=== PATIENT | male | born 1950 | race Caucasian/White ===

== ENCOUNTER 2018-09-22 03:03 | Emergency (ER) | payer OTHER ==
[2018-09-22 03:38] VITALS: BMI 28.0
[2018-09-22] MEDS ORDERED: KETOROLAC TROMETHAMINE 30 MG/1 ML VIAL IVPUSH ONE (04:15)
[2018-09-22] MEDS ORDERED: SODIUM CHLORIDE 0.9% 500 ML INFUS.BAG IV ONE (04:15)
--- NOTE | 2018-09-22 04:16 | PDOC ---
History of Present Illness - General Chief Complaint: Pain, Acute Stated Complaint: BACK PAIN/VOMITING Time Seen by Provider: 09/22/18 03:56 - History of Present Illness Initial Comments: 09/22/18 03:07 68yo M hx DM presents c/o L flank pain x2hrs. Pt was sleeping and was awoken from sleep with a sharp pain in his b/l flanks that moved to his L flank and around forward to his L side/LLQ. Gradual worsening, constant, nothing makes worse, hasn't tried any meds or anything to make better. Endorses nausea. Denies vomiting, dizziness, F/C, D/C, blood in stool or urine, hematuria, dysuria, hx of similar sx, hx of kidney stones or UTIs, heavy lifting or exertion, trauma, chest pain, SOB. Past History - Past Medical History Allergies/Adverse Reactions: Allergies Allergy/AdvReac Type Severity Reaction Status Date / Time No Known Allergies Allergy Verified 09/22/18 03:39 Home Medications: Ambulatory Orders Aspirin [Aspirin EC] 81 mg PO DAILY 12/31/14 Docosahexanoic Acid/Epa [Fish Oil Softgel] 1 each PO DAILY 12/31/14 Metformin HCl [Glucophage] 1,000 mg PO BID 12/31/14 Metoprolol Succinate [Toprol Xl] 50 mg PO DAILY 12/31/14 Anemia: No Asthma: No Cancer: No Cardiac Disorders: Yes (ASHD) CVA: No COPD: No CHF: No Dementia: No Diabetes: Yes (NIDDM) GI Disorders: No Disorders: No HTN: Yes Hypercholesterolemia: Yes Liver Disease: No Seizures: No Thyroid Disease: No - Surgical History Abdominal Surgery: Yes (RIH) Appendectomy: Yes (COLONOSCOPY) Cardiac Surgery: Yes (CARDIAC STENTS , S/P CABG) Cholecystectomy: No Lung Surgery: No Neurologic Surgery: No Orthopedic Surgery: No - Suicide/Smoking/Psychosocial Hx Smoking History: Never smoked Have you smoked in the past 12 months: No If you are a former smoker, when did you quit?: 1998 Information on smoking cessation initiated: No Hx Alcohol Use: No Drug/Substance Use Hx: No Substance Use Type: None Hx Substance Use Treatment: No Review of Systems - Review of Systems Comments:: 09/22/18 3:44 Constitutional: Negative for chills, fever, fatigue. HENT: Negative for sore throat, rhinorrhea, congestion. Eyes: Negative for visual disturbance. Respiratory: Negative for shortness of breath, cough, and wheezing. Cardiovascular: Negative for chest pain, palpitations, and leg swelling. Gastrointestinal: Positive for nausea. Negative for abdominal pain, blood in stool, constipation, diarrhea, and vomiting. Genitourinary: Positive for L flank pain. Negative for dysuria and hematuria. Musculoskeletal: Negative for myalgias, back pain, and neck pain. Skin: Negative for rash. Neurological: Negative for light-headedness, dizziness, syncope, weakness, numbness and headaches. Psychiatric/Behavioral: Negative for behavioral problems and confusion. *Physical Exam - Vital Signs Last Vital Signs Temp Pulse Resp BP Pulse Ox 98.1 F 73 17 188/89 H 97 09/22/18 03:03 09/22/18 03:03 09/22/18 03:03 09/22/18 03:03 09/22/18 03:03 - Physical Exam Comments: 09/22/18 03:45 Gen: Alert, in mild distress, sitting upright HEENT: PERRL, EOMI, MMM, NCAT. No conjunctival pallor. Sclera are non-icteric. Oropharynx is clear. CV: Regular rate and rhythm. No murmurs, rubs, or gallops. PULM: No resp distress. CTAB, no wheezes, rales, or rhonchi. ABD: +L CVA tenderness, abdomen soft, NT/ND, no rebound tenderness or guarding. BACK: No TTP of c/t/l-spine. No step-offs or deformities. MSK: No bony deformities. 2+ pulses in all extremities. NEURO: AAOx3. PERRL. No gross CN deficits. Strength and sensation grossly intact throughout. EXTREMITIES: No cyanosis. No clubbing. No edema. No calf tenderness. PSYCH: Normal mood and thought pattern. SKIN: Warm and dry. Normal capillary refill. No rashes. No jaundice. Heart Score/ECG Review - ECG Impressions Comment:: 09/22/18 06:58 NSR, 73bpm, no ASIYA/TWI ED Treatment Course - LABORATORY CBC & Chemistry Diagram: 09/22/18 05:05 09/22/18 05:05 Medical Decision Making - Medical Decision Making 68yo M hx DM presents with L flank pain and nausea x2hrs. Hemodynamically stable , L CVAT on exam, benign abdomen. Most likely renal colic - tx pain with Toradol , give 1L IVF, and evaluate with CTAP w/o contrast. Also consider other renal/ and abdominal etiologies, although less likely due to location of pain and benign abdomen - assess with labs and CTAP. Very low concern for ACS due to low HEART score (pre-trop/EKG) and lack of chest pain, but r/o with EKG and tropx2. Very low concern for vascular pathology, hemodynamically stable, - assess with labs and consider further testing if other tests uncertain of dx. -EKG -Labs: CBC, CMP, Cardiac profile, Lact, Lipase -CTAP w/o contrast -1L IVF -Toradol 30mg IV for pain -Dispo: pending workup Labs returned. UA shows no signs of UTI, 3+ blood, 849 RBCs. WBC 10.5. DARIN Cr 1.6. 1st trop <0.02. Lipase 204. Lact 1.3. 09/22/18 06:40 s/p Toradol pt feeling much better. CMP slight hemolysis - reorder for 0800. Due to L-sided pain, also get 2nd trop at 0800 - ordered. 09/22/18 06:[address] and 2nd CMP/trop at 0800. Pt signed out to incoming team at 0700. *DC/Admit/Observation/Transfer Diagnosis at time of Disposition: Flank pain - Discharge Dispostion Condition at time of disposition: Fair - Referrals Referrals: Ernesto Villafuerte MD [Primary Care Provider] - - Patient Instructions - Post Discharge Activity
[2018-09-22 04:56] LABS: EPI CELLS 0.2 /HPF (0-5/HPF); HYALINE CASTS 0 /lpf (0-8); PH,URINE 5.5 (5.0-8.0); URINE APPEARANCE CLEAR; URINE BACTERIA 2.2 /hpf (NEGATIVE); URINE BILIRUBIN NEGATIVE (NEGATIVE); URINE COLOR YELLOW; URINE GLUCOSE (UA) NEGATIVE (NEGATIVE); URINE KETONE NEGATIVE (NEGATIVE); URINE LEUK ESTERASE TRACE (NEGATIVE); URINE NITRITE NEGATIVE (NEGATIVE); URINE PROTEIN 1+ (NEGATIVE); URINE RBC 849 /hpf (0-4); URINE UROBILINOGEN 0.2 mg/dL (0.2-1.0); URINE WBC 3 /hpf (0-5)
--- NOTE | 2018-09-22 05:14 | PDOC ---
Attending Attestation - Resident Resident Name: SilverremingtonSandraCarey - ED Attending Attestation I have performed the following: I have examined & evaluated the patient, The case was reviewed & discussed with the resident, I agree w/resident's findings & plan, Exceptions are as noted - HPI HPI: 09/22/18 05:09 68 M with h/o DM presenting to ED with L flank pain and nausea. Pt states that the pain started suddenly at 1AM. States it is localized to his L flank, non- radiating. Pt states the pain was severe and constant but has since subsided. He also endorses nausea without vomiting. Denies CP/SOB. Denies abdominal pain. Denies F/C. Denies dysuria. - Physicial Exam PE: 09/22/18 05:10 GENERAL: Awake, alert, and fully oriented, in no acute distress. HEAD: No signs of trauma EYES: PERRLA, EOMI, sclera anicteric, conjunctiva clear ENT: Auricles normal inspection, hearing grossly normal, nares patent, oropharynx clear without exudates. Moist mucosa NECK: Nontender, no stepoffs, Normal ROM, supple, no lymphadenopathy, JVD, or masses LUNGS: Breath sounds equal, clear to auscultation bilaterally. No wheezes, and no crackles HEART: Regular rate and rhythm, normal S1 and S2, no murmurs, rubs or gallops ABDOMEN: Soft, nontender, normoactive bowel sounds. No guarding, no rebound. No masses BACK: + L CVAT EXTREMITIES: Normal range of motion, no edema. No clubbing or cyanosis. No cords, erythema, or tenderness NEUROLOGICAL: Cranial nerves II through XII intact. 5/5 strength and sensation in all extremities, Normal speech, normal gait, normal cerebellar function SKIN: Warm, Dry, normal turgor, no rashes or lesions noted. - Medical Decision Making 09/22/18 05:12 68 M with L flank pain, nausea. Exam with + L CVAT. Benign abdomen. Suspect renal colic. Will also evaluate for ACS, though pt without chest pain. EKG with no ischemic changes. - Labs, lipase, trop - UA - CTAP - IVF, pain control 09/22/18 06:39 Labs notable for hematuria without evidence of UTI Pt also with DARIN Cr 1.6, no prior to compare Labs slightly hemolyzed First trop negative Will repeat trop and CMP after IV hydration @ 8AM Pt signed out to oncoming team @ 7AM, pending CT and repeat labs
[2018-09-22 05:45] LABS: ALBUMIN 4.2 g/dl (3.4-5.0); ALK PHOS 63 U/L (45-117); ANION GAP 7 MMOL/L (8-16); BILIRUBIN,TOTAL 0.7 mg/dL (0.2-1); BLOOD UREA NITROGEN 25.2 mg/dL (7-18); CALCIUM 8.4 mg/dL (8.5-10.1); CHLORIDE 108 mmol/L (98-107); CO2 24 mmol/L (21-32); CREATININE 1.6 mg/dL (0.55-1.3); GLUCOSE,RANDOM 212 mg/dL (74-106); LIPASE 204 U/L (73-393); POTASSIUM 5.2 mmol/L (3.5-5.1); SGOT/AST 25 U/L (15-37); SGPT/ALT 11 U/L (13-61); SODIUM 139 mmol/L (136-145); TOT PROT 7.5 g/dl (6.4-8.2)
[2018-09-22] MEDS ORDERED: KETOROLAC TROMETHAMINE 30 MG/1 ML VIAL ONE (06:06)
[2018-09-22 06:24] LABS: BASO % 0.6 % (0-2.0); HEMATOCRIT 39.5 % (35.4-49); HEMOGLOBIN 12.3 GM/dL (11.7-16.9); LYMPH % 9.2 % (8-40); MCH 26.8 pg (25.7-33.7); MCHC 31.2 g/dl (32.0-35.9); MEAN CELL VOLUME 85.8 fl (80-96); MONO % 29.8 % (3.8-10.2); NEUT % 60.4 % (42.8-82.8); PLATELET COUNT 57 K/MM3 (134-434); RBC 4.61 M/mm3 (4.00-5.60); RDW 17.5 % (11.9-15.9); WHITE BLOOD COUNT 10.5 K/mm3 (4.0-10.0)
--- NOTE | 2018-09-22 07:09 | PDOC ---
*Physical Exam - Vital Signs Last Vital Signs Temp Pulse Resp BP Pulse Ox 98.1 F 73 17 188/89 H 97 09/22/18 03:03 09/22/18 03:03 09/22/18 03:03 09/22/18 03:03 09/22/18 03:03 ED Treatment Course - LABORATORY CBC & Chemistry Diagram: 09/22/18 05:05 09/22/18 10:13 - ADDITIONAL ORDERS Additional order review: Laboratory Results 09/22/18 09/22/18 09/22/18 05:05 05:05 04:35 Sodium 139 Potassium 5.2 H Chloride 108 H Carbon Dioxide 24 Anion Gap 7 L BUN 25.2 H Creatinine 1.6 H Est GFR (CKD-EPI)AfAm 49.85 Est GFR (CKD-EPI)NonAf 43.01 Random Glucose 212 H Lactic Acid 1.3 Calcium 8.4 L Total Bilirubin 0.7 AST 25 ALT 11 L Alkaline Phosphatase 63 Creatine Kinase 135 Troponin I < 0.02 Total Protein 7.5 Albumin 4.2 Lipase 204 Urine Color Yellow Urine Appearance Clear Urine pH 5.5 Ur Specific [place] 1.017 Urine Protein 1+ H Urine Glucose (UA) Negative Urine Ketones Negative Urine Blood 3+ H Urine Nitrite Negative Urine Bilirubin Negative Urine Urobilinogen 0.2 Ur Leukocyte Esterase Trace Urine WBC (Auto) 3 Urine RBC (Auto) 849 Urine Casts (Auto) 0 U Epithel Cells (Auto) 0.2 Urine Bacteria (Auto) 2.2 09/22/18 05:05 RBC 4.61 MCV 85.8 MCHC 31.2 L RDW 17.5 H MPV 9.0 Neutrophils % 60.4 Lymphocytes % 9.2 Monocytes % 29.8 H Eosinophils % 0.0 Basophils % 0.6 - Medications Given in the ED: ED Medications Discontinued Medications Generic Name Dose Route Start Last Admin Trade Name Freq PRN Reason Stop Dose Admin Ketorolac Tromethamine 30 mg 09/22/18 04:15 09/22/18 05:45 Toradol Injection - IVPUSH 09/22/18 04:16 30 mg ONCE ONE Administration Sodium Chloride 1,000 ml 09/22/18 04:15 09/22/18 05:45 Normal Saline - IV 09/22/18 04:16 1,000 ml ONCE ONE Administration Medical Decision Making - Medical Decision Making 09/22/18 07:09 Signed out by day team 68yo M with PMH of DM presenting to ED with sudden onset L flank pain and nausea. Pt states that the pain started suddenly at 1AM. Labs significant for slight hemolysis. -IV hydration, pain medication Pending CT. Repeat labs and troponin pending. 3+ b;ppd om irome Will reevaluate. 09/22/18 07:11 *DC/Admit/Observation/Transfer Diagnosis at time of Disposition: Kidney stone on left side - Discharge Dispostion Disposition: HOME Condition at time of disposition: Improved Decision to Admit order: No - Prescriptions Prescriptions: Oxycodone HCl/Acetaminophen [Percocet 5-325 mg Tablet] 1 tab PO Q4H PRN #14 tablet MDD 4 PRN Reason: Pain - Referrals Referrals: Ernesto Villafuerte MD [Primary Care Provider] - Enrique Infante MD [Staff Physician] - - Patient Instructions Additional Instructions: You were seen in the emergency room today for flank pain. You have a kidney stone. It may or may not have passed. Drink plenty of fluids! Use the strainer whenever you go to the bathroom. A prescription for pain medication was sent to your pharmacy. Take as directed. Please make an appointment with a urologist. Information is below. Come back to the emergency room if pain gets worse, you are unable to urinate, you develop fever or if any new concerning symptom develops. Thank you! - Post Discharge Activity
[2018-09-22 08:16] VITALS: TEMP 97.6
[2018-09-22 10:49] LABS: ALBUMIN 4.3 g/dl (3.4-5.0); ALK PHOS 64 U/L (45-117); ANION GAP 6 MMOL/L (8-16); BILIRUBIN,TOTAL 0.5 mg/dL (0.2-1); CALCIUM 8.4 mg/dL (8.5-10.1); CHLORIDE 108 mmol/L (98-107); CO2 26 mmol/L (21-32); CREATININE 1.8 mg/dL (0.55-1.3); GLUCOSE,RANDOM 126 mg/dL (74-106); POTASSIUM 4.6 mmol/L (3.5-5.1); SGOT/AST 15 U/L (15-37); SGPT/ALT 11 U/L (13-61); SODIUM 140 mmol/L (136-145); TOT PROT 7.7 g/dl (6.4-8.2)
--- NOTE | 2018-09-22 11:10 | EKG ---
Test Reason : Blood Pressure : / mmHG Vent. Rate : 073 BPM Atrial Rate : 073 BPM P-R Int : 190 ms QRS Dur : 086 ms QT Int : 406 ms P-R-T Axes : 062 083 026 degrees QTc Int : 447 ms NORMAL SINUS RHYTHM NORMAL ECG WHEN COMPARED WITH ECG OF 20-JUL-1998 09:09, NONSPECIFIC T WAVE ABNORMALITY NOW EVIDENT IN INFERIOR LEADS Confirmed by PATRIC VAUGHAN MD ([id number]) on 09/22/2018 11:10:10 AM Referred By: Confirmed By:PATRIC VAUGHAN MD
[2018-09-22 11:42] LABS: ANISOCYTOSIS 2+; MACROCYTOSIS 0; OVALOCYTE 1+; PLATELET ESTIMATE DECREASED; TEAR DROP CELLS 1+
[2018-09-22 12:35] VITALS: BP 195/97; PULSE 67
== END 2018-09-22 12:25 | disposition home or self-care (01) ==
LOC: JER 03:03
PROC: 3E0333Z Introduction of Anti-inflammatory into Peripheral Vein, Percutaneous Approach (ICD-10-PCS; principal; 2018-09-22)
PROC: 3E0337Z Introduction of Electrolytic and Water Balance Substance into Peripheral Vein, Percutaneous Approach (ICD-10-PCS; 2018-09-22)
DX: R10.32 Left lower quadrant pain (principal); Z87.891 Personal history of nicotine dependence; E78.00 Pure hypercholesterolemia, unspecified; I10 Essential (primary) hypertension
CPT/HCPCS: 36415; 74176-TC; 80053; 81003; 82550; 83605; 83690; 84484; 85025; 87086; 93005; 93010; 99283-25

== ENCOUNTER 2018-10-27 06:13 | Day surgery (SDC) | payer OTHER ==
[2018-10-27 06:35] VITALS: BMI 27.0
[2018-10-27] MEDS ORDERED: MIDAZOLAM HCL 2 MG/2 ML SINGLE DOSE VIAL ONE ×2 (07:58)
[2018-10-27] MEDS ORDERED: SUCCINYLCHOLINE CHLORIDE 200 MG/10 ML SYRINGE ONE (07:59)
[2018-10-27] MEDS ORDERED: PROPOFOL 20 ML ONE ×2 (07:59)
[2018-10-27] MEDS ORDERED: ONDANSETRON 4 MG/2 ML VIAL IVPUSH PRN (09:03)
[2018-10-27] MEDS ORDERED: PROMETHAZINE HCL 25 MG/1 ML VIAL IVPB PRN (09:03)
[2018-10-27] MEDS ORDERED: oxyCODONE HCL 5 MG TABLET PO PRN (09:03)
[2018-10-27 09:11] VITALS: TEMP 97.6
[2018-10-27] MEDS ORDERED: LACTATED RINGERS SOLUTION 1,000 ML IV SCH (09:15)
--- NOTE | 2018-10-27 09:29 | OP ---
Operative Note - Note: Operative Date: 10/27/18 Pre-Operative Diagnosis: LEFT RENAL STONE Operation: left ESWL Findings: 8 mm lower pole Left renal stone Post-Operative Diagnosis: Same as Pre-op Surgeon: Enrique Infante Anesthesia: Fractional Estimated Blood Loss (mls): 0 Drains & Tubes with Location: JJ sdtent Left Operative Report Dictated: Yes
[2018-10-27 13:32] VITALS: BP 153/60; PULSE 57
--- NOTE | 2018-10-27 19:47 | OP ---
DATE OF OPERATION: 10/27/2018 PREOPERATIVE DIAGNOSIS: Left renal stone. PREOPERATIVE DIAGNOSIS: Left renal stone. PROCEDURE: Left extracorporeal shockwave lithotripsy. ATTENDING: Ronni Infante M.D. ANESTHESIA: Fractional. DESCRIPTION OF PROCEDURE: Patient was brought in the operating room, placed in a supine position on the operating room table. Ultrasonography and fluoroscopy were performed. An 8-mm left lower pole stone was identified. At this point, anesthesia was and preoperative antibiotics were administered. Extracorporeal shockwave lithotripsy was performed. 2500 impulses, 17 joules of power were administered to the stone. The effects of the fragmentation noted under realtime ultrasonography and fluoroscopy. It was noted patient has a left ureteral stent. The patient also has a history of acute urinary retention, and while under anesthesia, his Flood catheter was removed. DISPOSITION: The patient will be followed in ambulatory surgery in order to ascertain whether he has been able to void. RONNI VENEGAS M.D. [id number]
== END 2018-10-27 12:00 | disposition home or self-care (01) ==
LOC: JASU-SURG 06:13
PROVIDERS: ATTEND Urology
PROC: 0TF4XZZ Fragmentation in Left Kidney Pelvis, External Approach (ICD-10-PCS; principal; 2018-10-27 08:00)
DX: N20.0 Calculus of kidney (principal)
CPT/HCPCS: 82962

== ENCOUNTER 2019-03-13 06:56 | Day surgery (SDC) | payer OTHER ==
[2019-03-12 14:59] VITALS: BMI 27.3
[2019-03-13] MEDS ORDERED: MIDAZOLAM HCL 2 MG/2 ML SINGLE DOSE VIAL ONE (08:10)
[2019-03-13 08:46] VITALS: TEMP 98.7
[2019-03-13 09:35] VITALS: BP 125/68; PULSE 80
--- NOTE | 2019-03-16 15:47 | PATH ---
Surgical Pathology Report Patient Name: JODEE HENSON [facility]. Rec. #: [id number] /Age/Gender: 1950 (Age: 69) / M Account: [id number] Location: U-ENDOSCOPY Taken: 03/13/2019 Received: 03/13/2019 Reported: 03/16/2019 Physicians: María Elena Chapman M.D. Specimen(s) Received A: RECTAL POLYP B: TRANSVERSE COLON POLYPS Clinical History Anemia Postoperative diagnosis: Rectal polyp, transverse colon polyp, diverticulosis Final Diagnosis A. RECTAL POLYP, BIOPSY: POLYPOID COLONIC MUCOSA WITH FOCAL SURFACE HYPERPLASTIC CHANGE. B. TRANSVERSE COLON POLYPS, POLYPECTOMY: TUBULAR ADENOMA, ONE FRAGMENT. SEPARATE FRAGMENTS OF COLONIC MUCOSA WITH NO SIGNIFICANT PATHOLOGIC CHANGE. Electronically Signed Kirit Pardo M.D. Gross Description A. Received in formalin, labeled "biopsy rectal polyp" is a hoyt, irregular portion of soft tissue measuring 0.3 cm. in greatest dimension. The specimen is submitted in toto in one cassette. B. Received in formalin, labeled "biopsy transverse colon polyps" are 4 hoyt, irregular portions of soft tissue ranging from 0.2-0.5 cm. in greatest dimension. The specimens are submitted in toto in one cassette. 03/13/201903/13/2019
== END 2019-03-13 09:30 | disposition home or self-care (01) ==
LOC: JASU-ENDO 06:56
PROVIDERS: ATTEND Internal Medicine Gastroenterology
PROC: 0DBL8ZX Excision of Transverse Colon, Via Natural or Artificial Opening Endoscopic, Diagnostic (ICD-10-PCS; 2019-03-13)
PROC: 0DJ08ZZ Inspection of Upper Intestinal Tract, Via Natural or Artificial Opening Endoscopic (ICD-10-PCS; 2019-03-13)
PROC: 0DBP8ZX Excision of Rectum, Via Natural or Artificial Opening Endoscopic, Diagnostic (ICD-10-PCS; principal; 2019-03-13 08:00)
DX: D50.9 Iron deficiency anemia, unspecified (principal); Z86.010 Personal history of colon polyps; D12.3 Benign neoplasm of transverse colon; K62.1 Rectal polyp; K57.30 Diverticulosis of large intestine without perforation or abscess without bleeding; K64.8 Other hemorrhoids; Z53.8 Procedure and treatment not carried out for other reasons; I10 Essential (primary) hypertension; E78.5 Hyperlipidemia, unspecified; Z95.1 Presence of aortocoronary bypass graft; Z95.5 Presence of coronary angioplasty implant and graft; E11.9 Type 2 diabetes mellitus without complications; Z79.4 Long term (current) use of insulin
CPT/HCPCS: 82962; 88305-TC

== ENCOUNTER 2020-08-11 19:03 | Emergency (ER) | payer OTHER ==
[2020-08-11 19:14] VITALS: BP 135/66; PULSE 79; TEMP 97.9; BMI 23.4
== END 2020-08-11 20:15 | disposition home or self-care (01) ==
LOC: JER 19:03 → JERFT 19:03
DX: S42.345A Nondisplaced spiral fracture of shaft of humerus, left arm, initial encounter for closed fracture (principal)
CPT/HCPCS: 73030-TC-LT-FY; 99283-25

== ENCOUNTER 2020-09-02 15:18 | Emergency (ER) | payer OTHER ==
[2020-09-02 15:32] VITALS: BP 150/80; PULSE 75; TEMP 99; BMI 22.0
[2020-09-02] MEDS ORDERED: oxyCODONE HCL 5 MG TABLET PO ONE (17:54)
[2020-09-02] MEDS ORDERED: oxyCODONE HCL 5 MG TABLET ONE (18:15)
== END 2020-09-02 18:34 | disposition home or self-care (01) ==
LOC: JERFT 15:18
DX: S42.294A Other nondisplaced fracture of upper end of right humerus, initial encounter for closed fracture (principal)
CPT/HCPCS: 73030-TC-RT-FY; 73060-TC-RT-FY; 99284-25